=== PATIENT | female | born 1960 | race Two or more races ===

== ENCOUNTER 2023-07-08 03:11 | Inpatient (IN) | payer OTHER, SELFPAY ==
[2023-07-07 22:25] VITALS: BMI 23.1
[2023-07-07 22:31] VITALS: BP 124/80
[2023-07-07] MEDS: ZOFRAN 4 MG IV (23:16)
[2023-07-07 23:18] VITALS: BP 127/90
[2023-07-07 23:23] LABS: % Basophils 0.3 % (0-2); % Eosinophils 0.2 % (0-6); % Immature Granulocytes 0.3 % (0-0.5); % Monocytes 3.5 % (1.7-9.3); % Neutrophils 82.7 % (42.2-75.2); Absolute Lymphocytes 1.4 10^3/uL (1.2-3.4); Absolute Monocytes 0.4 10^3/uL (0.1-0.6); Absolute Neutrophils 8.7 10^3/uL (1.4-6.5); Hematocrit 39.9 % (37.0-47.0); Hemoglobin 14.4 g/dL (12.0-16.0); Mean Corp Hgb Conc. 36.1 g/dL (33.0-37.0); Mean Corpuscular Hgb 32.2 pg (27.0-31.0); Mean Corpuscular Volume 89.3 fL (81.0-99.0); Mean Platelet Volume 10.5 fL (7.4-10.4); Nucleated Red Blood Cells % 0 %; Platelet Count 221 10^3/uL (130-400); Red Blood Cell Count 4.47 10^6/uL (4.20-5.40); Red Cell Dist. Width 12.3 % (11.5-14.5); White Blood Cell Count 10.6 10^3/uL (4.8-10.8)
[2023-07-07 23:47] LABS: ALT (SGPT) 60 U/L (0-35); AST (SGOT) 83 U/L (14-36); Albumin 4.5 g/dl (3.5-5.0); Alkaline Phosphatase 86 U/L (38-126); Blood Urea Nitrogen 25 mg/dl (7-17); Calcium 10.4 mg/dl (8.4-10.2); Carbon Dioxide 27 mmol/L (22-30); Chloride 104 mmol/L (98-107); Glucose 125 mg/dl (70-99); Potassium 3.8 mmol/L (3.5-5.1); Sodium 138 mmol/L (135-145); Total Bilirubin 0.4 mg/dl (0.2-1.3); Total Protein 6.8 g/dl (6.3-8.2); eGFR > 60.00
[2023-07-07 23:54] LABS: Troponin I 0.311 ng/ml
[2023-07-08] VITALS (43 sets, daily range): BP systolic 87–133; BP diastolic 61–98; BMI 22.2
[2023-07-08] MEDS: NITROSTAT (SUBLINGUAL) 0.400000000000000022 MG SL ×4 (00:03→06:25)
[2023-07-08] MEDS: LOW STRENGTH ASPIRIN 81 MG PO (00:10)
--- NOTE | 2023-07-08 00:12 | ED.GENMED ---
History of Present Illness
General
Chief Complaint: Chest Pain
Source: patient and family
Time Seen by Provider: 07/07/23 22:40
Travel History
Have you had any contact with someone who has COVID-19?: No
Do you have any symptoms of coronavirus? Fever > 100 degrees, chills, cough, shortness of breath, sore throat, loss of taste or smell, muscle aches, or headache?: No
History of Present Illness
History of Present Illness:
This is a 62-year-old female who presents with chest pain that occurred [place] It started around 7:30 PM. She states while driving home seem to be getting worse and decided come for evaluation. Patient on my
evaluation reports it feels like somebody sitting on her chest but also admits that it feels a little sharp on the left side of her chest and worse to move. The pain does radiate a little bit toward her back. No diaphoresis. No shortness of
breath. No leg swelling. No history of coronary disease.
Past History
Past History
ED Past Surgical History:
Phy Exam
Physical Exam
Physical Exam:
CONSTITUTIONAL Patient alert and oriented to person, place and time. Well-appearing. Vital signs reviewed.
HEAD atraumatic, normocephalic.
EYES eyelids normal to inspection, Pupils equally round and reactive to light, Extraocular muscles intact, Conjunctiva normal, Sclera normal.
NECK normal range of motion, Trachea midline, no jugular venous distention.
RESPIRATORY CHEST No respiratory distress noted, Chest expansion equal, Bilateral breath sounds clear.
CARDIOVASCULAR regular rate and rhythm, Heart sounds normal.
ABDOMEN abdomen nontender, Bowel sounds normal. No distention.
BACK normal inspection, no obvious deformities
UPPER EXTREMITY range of motion normal, Motor strength normal, no cyanosis, no edema.
LOWER EXTREMITY range of motion normal, Motor strength normal, no cyanosis, no edema.
NEURO Speech normal, No focal motor deficits, [place] coma scale 15, Memory normal, Cranial Nerves intact to screening exam.
SKIN skin warm, dry, and normal in color.
PSYCHIATRIC patient oriented to person place and time, Normal affect.
Scores
Heart Score for Chest Pain Patients
STEMI patient?: No
History: Highly Suspicious
ECG: Nonspecific Repolarization
Age: >45 - <65 years
Risk Factors: 1 or 2 Risk Factors
Troponin: >/= 3 x Normal Limit
Heart Score for Chest Pain Patients: 7
Heart Score Risk: 72.7 % MACE over next 6 weeks
Course
Orders/Labs/Results
Orders:
Orders
07/07/23 22:27
ECG [Electrocardiogram (*1)] Urgent
Reason for Study: Chest Pain
EKG- Treatment ONCE
07/07/23 23:04
Electrocardiogram (*1) Urgent
Reason for Study: Chest Pain
EKG- Treatment ONCE
07/07/23 23:08
Ondansetron Injectable [Zofran] 4 mg IV NOW STA
CR Chest - 2 Views Urgent
Comment:
Reason For Exam: cp
07/07/23 23:15
Complete Blood Count/With Diff Urgent
Comprehensive Metabolic Panel Urgent
Troponin I Urgent
07/07/23 23:26
Ketorolac [Toradol] 15 mg IV NOW STA
07/07/23 23:58
Nitroglycerin Sublingual [Nitrostat (Sublingual)] 0.4 mg .ROUTE .STK-MED ONE
07/08/23
EKG [Electrocardiogram (*1)] Stat
Reason for Study: Chest Pain
07/08/23 00:02
Aspirin Chewable [Low Strength Aspirin] 81 mg PO NOW STA
Nitroglycerin Sublingual [Nitrostat (Sublingual)] 0.4 mg SL [id number] PRN
07/08/23 00:06
EKG [Electrocardiogram (*1)] Stat
Reason for Study: Chest Pain
EKG- Treatment ONCE
07/08/23 00:09
Heparin 3,600 units IV NOW STA
Nursing to Place Non Medication Order As Directed
Physician Order: PTT 6 hours after initial start of Heparin infusion
Above order entered?: Yes
07/08/23 00:14
PTT Urgent
Comment: Obtain baseline before beginning heparin infusion if not already collected
07/08/23 00:15
Heparin 50501 Units/250 ml 25,000 units in 250 ml IV PER PROTOCOL
Weight to be used for heparin protocol in kilograms (kg):: 59.2
Protocol:: Cardiac Tx/Acute Coronary
PTT Goal Range to be used:: PTT 73 to 111 seconds
Order type:: Initial
INITIAL Infusion Dose (UNITS/KG/hr) & then follow protocol:: 12 units/kg/hr
Infusion Dose in UNITS/hr & then follow protocol (UNITS/hr):: 700
INFUSION RATE in mL/hr & then follow protocol (mL/hr):: 7
PTT less than or equal to 64 seconds:: Increase rate by 200 units/hr (+ 2 mL/hr)
PTT 64.1 to 72.9 seconds:: Increase rate by 100 units/hr (+ 1 mL/hr)
PTT 73 to 111 seconds:: Target Range. No change in rate.
PTT 111.1 to 130.9 seconds:: Decrease rate by 100 units/hr (- 1 mL/hr)
PTT 131 to 199.9 seconds:: HOLD for 1 hr. Then decrease rate by 200 units/hr (- 2 mL/hr)
PTT greater than or equal to 200 seconds:: HOLD for 2 hrs & Notify Provider. Then decrease by 200 units/hr (-
2 mL/hr)
Lab follow-up:: Each change, PTT q6h until 2 consecutive are therapeutic. Then PTT
daily.
07/08/23 00:26
Electrocardiogram (*1) Urgent
Reason for Study: Chest Pain
EKG- Treatment ONCE
EKG- Treatment ONCE
07/08/23 00:28
Nitroglycerin 100 mg/250 ml [Nitroglycerin Premix] 100 mg in 250 ml .ROUTE .STK-MED
Nitroglycerin 100 mg/250 ml [Nitroglycerin Premix] 100 mg in 250 ml IV NOW
Initial dose in mcg/min, then titrate:: 5
Titrate to keep:: SBP < 160 mmHg
Titrate by mcg/min:: 5 mcg/min, may increase by 10 mcg/min if dose > 20 mcg/min
Frequency of titrations (minutes):: every 3-5 minutes
Maximum dose in mcg/min:: 200
Begin to taper infusion when:: Remained at goal for 2hrs
Taper by mcg/min:: 5 mcg/min
Frequency of taper (minutes) if patient maintains goal:: 30
Taper to off?: Yes
If infusion off & no longer maintaining goal:: Contact Provider
07/08/23 00:58
Troponin I Urgent
07/08/23 01:00
Flush (0.9% Sodium Chloride) [Flush (Nss)] See Dose Instructions IV PER PROTOCOL
07/08/23 01:28
Ticagrelor [Brilinta] 180 mg .ROUTE .STK-MED ONE
07/08/23 01:31
Ticagrelor [Brilinta] 180 mg PO ONCE ONE
07/08/23 01:47
Fentanyl Citrate/Pf [Sublimaze] 100 mcg .ROUTE .STK-MED ONE
Heparin 10,000 units .ROUTE .STK-MED ONE
Heparin 1000 Units/500 ml [Heparin] 1,000 units in 500 ml .ROUTE .STK-MED
Heparin Sodium,Porcine/Ns/Pf [Heparin 2000 Units/1000 ml] 2,000 unit in 1,000 ml .ROUTE .STK-MED
Lidocaine HCl/Pf [Xylocaine-Mpf 1% Vial] 50 mg .ROUTE .STK-MED ONE
Midazolam HCl [Versed] 2 mg .ROUTE .STK-MED ONE
Nitroglycerin [Tridil] 1,500 mcg .ROUTE .STK-MED ONE
Verapamil Injectable [Isoptin/Verapamil Injection] 5 mg .ROUTE .STK-MED ONE
Abnormal Lab Results
07/07/23 07/08/23
23:15 00:58
MCH 32.2 H pg
(27.0-31.0)
MPV 10.5 H fL
(7.4-10.4)
Absolute Neuts (auto) 8.7 H 10^3/uL
(1.4-6.5)
Neutrophils % 82.7 H %
(42.2-75.2)
Lymphocytes % 13.0 L %
(20.5-51.1)
BUN 25 H mg/dl
(7-17)
Glucose 125 H mg/dl
(70-99)
Calcium 10.4 H mg/dl
(8.4-10.2)
AST 83 H U/L
(14-36)
ALT 60 H U/L
(0-35)
Troponin I 0.311 H* ng/ml 0.740 H* D ng/ml
07/07/23 23:15
07/07/23 23:15
Vital Signs
Initial and Last Documented VS:
Initial Vital Signs
Temp Pulse Resp BP Pulse Ox
97.8 F 78 20 124/80 100
07/07/23 22:31 07/07/23 22:31 07/07/23 22:31 07/07/23 22:31 07/07/23 22:31
Last Documented Vital Signs
Temp Pulse Resp BP Pulse Ox
97.8 F 98 33 117/75 97
07/07/23 22:31 07/08/23 01:50 07/08/23 01:25 07/08/23 01:50 07/08/23 01:50
MDM/Problems Addressed
MDM/Problems Addressed:
NSTEMI, unstable angina
*Radiology
Radiology exam reviewed: all reviewed NAD by ED Provider
*Pulse Oximetry
Patient hypoxic: no
*EKG
Interpreted by ED Provider?: Yes
Interpretation: abnormal
Rate: normal
Rhythm: sinus
[place]: normal axis
Interval: normal interval
Ischemia: other (Question subtle ST elevation in 1 and aVL but no reciprocal changes. Continue to repeat and monitor)
*Lawn Mower Mechanic Interpretation
Rate: normal
Interpretation: normal
Rhythm: sinus
*Critical Care Note
Total Time (30-74mins, 75-104mins- exclusive of procedures): 65 minutes
Data Reviewed
Source: patient and significant other
Prescriptions/Medications Considered But Not Given:
Consider Toradol suspect ACS as etiology
Patient Management
Discussion with other providers: Deputy Bailiff (Case discussed with Dr. Green)
Escalation/DeEscalation of care consider admission/obs:
62-year-old female who presents with chest pain that started around 730 while rowing. EKG repeated shortly after arrival and remained unchanged. Symptoms did improve after nitroglycerin. Case discussed with Dr. Green. Troponin noted. Heparin
ordered. Patient did take 3 baby aspirin's at home prior to arrival. Dr. Alva also to discuss with interventional cardiology.
Update Note
Update Note:
Despite IV nitroglycerin and the third sublingual, pain does persist around 1. She states she is much improved but does persist to a mild degree. Case again discussed with cardiology and will go for cardiac catheterization. Another repeat EKG
appears unchanged from the previous several.
ED Attending Note
-
Portions of this chart may have been created with voice recognition software.� Occasional wrong word or��sound alike� substitutions may have occurred due to the inherent limitations of voice recognition software.
Discharge Plan
Departure
Patient Disposition: Admit
Date of Disposition: 07/08/23
Time of Disposition: 00:13
Admit to: IVU
Presentation/result/management discussed w/ accepting MD/DO: cardiology
Discharge Problem:
Acute non-ST elevation myocardial infarction (NSTEMI)
Prescriptions:
No Action
No Current Medications
0
Referrals:
Marguerite Multani PA-C [Family Provider] -
Interventions
Interventions:
*Risk Screen - Suicide Last Done: 07/07/23 22:31
*General Assessment Last Done: 07/07/23 22:31
*Neglect/Abuse Screening Last Done: 07/07/23 22:31
ED- Fall Risk Assessment Last Done: 07/08/23 02:02
*ED COVID-19 Vaccine History Last Done: 07/08/23 02:02
*Nursing Disposition Last Done: 07/08/23 02:02
ED- Cardiac Assessment Last Done: 07/08/23 00:47
Discharge Date and Time
Discharge Date/Time: 07/08/23 02:03
Print Language: PALESTINIAN
[2023-07-08] MEDS: HEPARIN 3600 UNITS IV (00:34)
[2023-07-08] MEDS: NITROGLYCERIN PREMIX 250 IV (00:34)
[2023-07-08] MEDS: HEPARIN 25000 UNITS/250 ML IV (00:36)
[2023-07-08 00:40] LABS: APTT 27.7 Sec (23.4-35.0)
[2023-07-08] MEDS: BRILINTA 180 MG PO (01:31)
--- NOTE | 2023-07-08 01:55 | ITS.CL.CATH ---
Broadcast Director Operations - Catheterization
Cardiac Catheterization
Procedure Report:
LEFT HEART CATHETERIZATION
Date of Procedure: July 08, 2023
Referring: [facility]
PROCEDURES:
1. Left heart catheterization, coronary angiogram.
2. Ultrasound-guided access
INDICATION: Nora is a 62-year-old female with past medical history of tobacco abuse, quit 40 years ago with no other known past medical history who presents with substernal chest discomfort that started soon [place] starting around 7:30PM with ECG showing submillimeter ST elevations in lateral leads with Q waves present no other reciprocal changes. Troponin I on presentation was 0.3. Her chest pain improved significantly post sublingual nitro however
despite 3 doses she could not become chest pain-free now complaining of 1 out of 10 chest pain for which the heart catheterization team was activated. After informed consent she was brought up to the heart catheterization lab urgently for a left
heart catheterization to rule out obstructive CAD. She received 325 mg of aspirin, 180 mg of ticagrelor, 5000 units of unfractionated IV heparin, 3 sublingual nitroglycerin in the emergency department. She tells me that she had similar chest
discomfort about a year ago however it was not as severe and did not persist and therefore she did not seek any medical attention. She has not seen a physician in little over 3 years. Prior to that she did have a regular health checkup which was
unremarkable per the patient.
ACCESS: Right radial artery, 6 Maltese sheath, under ultrasound guidance
HEMODYNAMICS : (mmHg)
AO (s/d) 133/92
LV (s/d) : 130/21
LVEDP : 30
CORONARY FINDINGS
DOMINANCE: Right
LEFT MAIN: The left main artery is a large-caliber vessel which gives rise to the left into descending artery and a very small diminutive left circumflex system. Angiographically normal vessel.
LEFT ANTERIOR DESCENDING: The left anterior descending artery is a medium to large caliber vessel which gives rise to multiple small diagonal branches as it courses through the anterior interventricular groove towards the apex. There is minimal
luminal irregularities. Coronary slow flow was noted on initial shots which improved after intracoronary nitroglycerin.
CIRCUMFLEX: The left circumflex artery is a very small diminutive system without significant disease.
RIGHT CORONARY ARTERY: The right coronary artery is a large-caliber, dominant vessel which gives rise to right posterior descending artery and a large right posterolateral system. Angiographically normal vessels.
AORTOGRAM AND VENTRICULOGRAM: An aortogram was performed to definitively rule out an anomalous left circumflex artery. Aortogram did not suggest any evidence of this and therefore we concluded presence of a likely small diminutive left circumflex
system in the setting of a large right posterolateral system. In a single plane JUÁREZ view ventriculography was performed which showed hyperdynamic function of the basal anterior and posterolateral beltran with significant mid to apical hypokinesis,
most consistent with Takotsubo or stress-induced cardiomyopathy. Estimated left ventricular ejection fraction is about 35 to 40%.
SEDATION: 60 minutes of procedural sedation was utilized. An independent medical office receptionist assistant was present to assist with and help manage the patient's level of consciousness and physiologic status.
RADIATION SUMMARY: Fluoro Time (min): 6.0, Dose (mGy): 199.8, DAP (Gy.cm2) : 17.5
Closure Device: Vascular band over right radial artery, 9 cc of air.
CONCLUSIONS
1. No obstructive coronary artery disease.
2. In a single plane JUÁREZ view ventriculography was performed which showed hyperdynamic function of the basal anterior and posterolateral beltran with significant mid to apical hypokinesis, most consistent with Takotsubo or stress-induced
cardiomyopathy. Estimated left ventricular ejection fraction is about 35 to 40%.
3. Significantly elevated LVEDP.
RECOMMENDATIONS
1. Goal-directed medical therapy for Takotsubo stress-induced cardiomyopathy.
2. Wean radial band per protocol.
3. Full echocardiogram to assess biventricular function and rule out any significant valvular abnormalities.
4. Trend troponins and EKGs overnight with close monitoring on telemetry.
5. Modification of cardiovascular risk factors.
6. Outpatient referral for cardiac rehab.
Copy to: Oscar Green
Lesley Mckinley MD, FACC, [facility]
[2023-07-08 02:13] LABS: ACT-LR - POC 182 Seconds (116-155)
[2023-07-08 02:30] LABS: ACT-LR - POC 221 Seconds (116-155)
--- NOTE | 2023-07-08 03:11 | HPS.HSE ---
Family Physician
-
Family Physician: Marguerite Multani PA-C
Chief Complaint
-
Chest Pain
History of Present Illness
Nora is a 62-year-old female with past medical history of tobacco abuse, quit 40 years ago with no other known past medical history who presents with substernal chest discomfort that started soon [place] starting
around 7:30PM with ECG showing submillimeter ST elevations in lateral leads with Q waves present no other reciprocal changes. Troponin I on presentation was 0.3. Her chest pain improved significantly post sublingual nitro however despite 3 doses
she could not become chest pain-free now complaining of 1 out of 10 chest pain for which the heart catheterization team was activated. After informed consent she was brought up to the heart catheterization lab urgently for a left heart
catheterization to rule out obstructive CAD. She received 325 mg of aspirin, 180 mg of ticagrelor, 5000 units of unfractionated IV heparin, 3 sublingual nitroglycerin in the emergency department. She tells me that she had similar chest discomfort
about a year ago however it was not as severe and did not persist and therefore she did not seek any medical attention. She has not seen a physician in little over 3 years. Prior to that she did have a regular health checkup which was unremarkable
per the patient.
Medical History
Past Medical History
Past Medical History: Reports None
Past Surgical History: Reports Other
Additional Past Surgical History:
Social History
Tobacco: Former Smoker (quit 40 yrs ago)
Alcohol: Occasional
Drug: None
Personal:
Living: With Family
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
Family History
Family History: Not pertinent
Allergies / Home Medications
Allergies reflects when Allergies were last updated in [facility].
Home Medications with original date entered in [facility]
Allergy/Medication List:
NKDA
No chronic medications
Review of Systems
-
A 12 point ROS was completed and negative except as noted: Yes
Physical Exam
Vital Signs
Vital Signs
Temp Pulse Resp BP Pulse Ox
97.8 F 98 33 117/75 97
07/07/23 22:31 07/08/23 01:50 07/08/23 01:25 07/08/23 01:50 07/08/23 01:50
Physical Exam
General: Well Developed, Well Nourished and Appears in Distress (mild CP)
HEENT: Moist mucous membranes and Atraumatic
Respiratory: Clear and Non Labored Respirations
Cardiac: S1/S2, Regular Rhythm and JVD; No Murmur, Rub, Gallop or Peripheral Edema
Breast: Deferred by me
GI: Soft, Non Tender, Non Distended and Normal Bowel Sounds
Musculoskeletal: No Clubbing, No Cyanosis and No Edema
Skin: Warm and Dry
Neuro: Awake, Alert, Oriented and AO x 3
Psych: Anxious
Laboratory Results
-
Laboratory Results
APTT 27.7 Sec (23.4-35.0) 07/08/23 00:14
Total Bilirubin 0.4 mg/dl (0.2-1.3) 07/07/23 23:15
AST 83 U/L (14-36) H 07/07/23 23:15
ALT 60 U/L (0-35) H 07/07/23 23:15
Alkaline Phosphatase 86 U/L (38-126) 07/07/23 23:15
Troponin I 0.740 ng/ml H* D 07/08/23 00:58
Data Reviewed
-
Critical Care Time (in minutes): 61
Diagnostic Radiology: Report Reviewed by me
Medical Tests (Nuc Med, Echo, EKG etc): Image Personally Visualized and interpreted
Lab Data: Labs Reviewed by me
Old Records: Reviewed
Impression/Plan
-
IMPRESSION: 62-year-old female with no significant past medical history other than being a former smoker, quit 40 years ago who presents with substernal chest discomfort found to have an NSTEMI with heart catheterization showing no obstructive CAD,
most consistent with Takotsubo or stress-induced cardiomyopathy.
PLAN: RECOMMENDATIONS
1. Goal-directed medical therapy for Takotsubo stress-induced cardiomyopathy. Started on Toprol-XL 25 mg daily. IV diuresis as needed in setting of significantly elevated LVEDP at 30 mmHg.
2. Wean radial band per protocol.
3. Full echocardiogram to assess biventricular function and rule out any significant valvular abnormalities.
4. Trend troponins and EKGs overnight with close monitoring on telemetry.
5. Modification of cardiovascular risk factors.
6. Outpatient referral for cardiac rehab.
Lesley Mckinley MD, FACC, [facility]
[2023-07-08] MEDS: TOPROL XL 25 MG PO ×3 (03:46→21:01)
--- NOTE | 2023-07-08 04:00 | PTCARENOTE ---
Received pt from label drier. AOx3 and pleasant. R radial band on. Aware of activity restrictions. POX 96% RA. VSS. Pt able to approp answer all admission questions. Oriented to room. Labs drawn. Offers no c/o at this time. Currently in bed; call hightower
w/in reach.
[2023-07-08 04:17] LABS: % Basophils 0.2 % (0-2); % Eosinophils 0.1 % (0-6); % Immature Granulocytes 0.2 % (0-0.5); % Monocytes 5.4 % (1.7-9.3); % Neutrophils 72.1 % (42.2-75.2); Absolute Lymphocytes 1.8 10^3/uL (1.2-3.4); Absolute Monocytes 0.5 10^3/uL (0.1-0.6); Hematocrit 37.7 % (37.0-47.0); Hemoglobin 13.4 g/dL (12.0-16.0); Mean Corp Hgb Conc. 35.5 g/dL (33.0-37.0); Mean Corpuscular Hgb 32.1 pg (27.0-31.0); Mean Corpuscular Volume 90.2 fL (81.0-99.0); Mean Platelet Volume 10.5 fL (7.4-10.4); Nucleated Red Blood Cells % 0 %; Platelet Count 219 10^3/uL (130-400); Red Blood Cell Count 4.18 10^6/uL (4.20-5.40); Red Cell Dist. Width 12.4 % (11.5-14.5); White Blood Cell Count 8.3 10^3/uL (4.8-10.8)
[2023-07-08 05:03] LABS: Blood Urea Nitrogen 17 mg/dl (7-17); Carbon Dioxide 22 mmol/L (22-30); Chloride 107 mmol/L (98-107); Estimated Creatinine Clearance 82 ml/min; Glucose 104 mg/dl (70-99); HDL Cholesterol 56 mg/dl; LDL Cholesterol, Calculated 108 mg/dl; Potassium 3.6 mmol/L (3.5-5.1); Sodium 138 mmol/L (135-145); Total Cholesterol 172 mg/dl (50-199); Triglyceride 40 mg/dl (10-149); Very Low Density Lipoprotein 8 mg/dl (0-30); eGFR > 60.00
--- NOTE | 2023-07-08 07:00 | PTCARENOTE ---
R radial band off. 4x4 gauze and Tegaderm applied. C/d/i. C/o chest pressure 2/10. SL nitro given per order. Pt states relief but appears anxious. Will pass along to dayshift RN.
--- NOTE | 2023-07-08 08:05 | CARDSERVLU ---
Echocardiogram with Lumason completed after protocol screening completed. Allergies verified.
Patent IV site: __R AC___
IV site flushed with 0.9% NaCl pre and post administration.
Diluted bolus method utilized to enhance visualization of ventricular beltran.
Total volume given: __2.5__ mL
Patient tolerated all procedures well without complications.
--- NOTE | 2023-07-08 09:28 | PTCARENOTE ---
Assumed care of pt from night RN. Pt received awake and alert, Ox3. VSS, CM shows NSR70's, POX 95% on RA. Right radial site CDI, with good CMS throughout limb. She c/o chest pressure 1-2. Echo done this am. Trops due at 1100. For Lasix tis am.
[2023-07-08] MEDS: LASIX 20 MG IV (09:42)
--- NOTE | 2023-07-08 09:47 | PTCARENOTE ---
Lasix 20 mg given IV as ordered per MAY.
--- NOTE | 2023-07-08 09:55 | W.PN.CARDCBS ---
Today's Communication / Plan
-
serial troponin to peak
Echo today
initiate GDMT as bp allows for Takotsubo CM
Impression / Plan
-
PCP: Marguerite Multani PA-C
62-year-old female with no significant past medical history other than being a former smoker, quit 40 years ago who presents with substernal chest discomfort found to have an NSTEMI with heart catheterization showing no obstructive CAD, most
consistent with Takotsubo or stress-induced cardiomyopathy.
Impression/Plan:
Non ischemic myocardial injury/Takotsubo CM - cath with normal coronaries, EF 35-40% by Vgram, still having 2-3/10 chest heaviness
LVEDP 30, will treat with Lasix 20iv now, replete K, tele no events o/n
serial troponin to peak, Echo results pending
new start to metoprolol xl 25mg this am, will monitor bp and will try to attempt entresto
Activity restrictions reviewed
will ff/u CBC at d/c
continue to monitor on tele another 24 hours
Former smoker - remote, cessation reinforced
Progress Note - Marketing Services Manager
Subjective
Date of Service: July 08, 2023
2-3/10 chest heaviness, no sob
Objective
Labs:
07/08/23 03:37
07/08/23 03:37
Labs
Hgb 13.4 g/dL (12.0-16.0) 07/08/23 03:37
Hct 37.7 % (37.0-47.0) 07/08/23 03:37
Plt Count 219 10^3/uL (130-400) 07/08/23 03:37
APTT 27.7 Sec (23.4-35.0) 07/08/23 00:14
Sodium 138 mmol/L (135-145) 07/08/23 03:37
Potassium 3.6 mmol/L (3.5-5.1) 07/08/23 03:37
BUN 17 mg/dl (7-17) 07/08/23 03:37
Creatinine 0.5 mg/dL (0.6-1.0) L 07/08/23 03:37
Glucose 104 mg/dl (70-99) H 07/08/23 03:37
Troponins
07/07/23 07/08/23 07/08/23
23:15 00:58 03:37
Troponin I 0.311 H* 0.740 H* D 1.570 H* D
Vital Signs and I&O:
Vital Signs
Temp Pulse Resp BP Pulse Ox
98.1 F 78 20 112/76 95
07/08/23 08:31 07/08/23 03:46 07/08/23 08:31 07/08/23 03:46 07/08/23 09:23
Vital Signs
Temp Pulse Resp BP Pulse Ox
98.1 F 78 20 112/76 95
07/08/23 08:31 07/08/23 03:46 07/08/23 08:31 07/08/23 03:46 07/08/23 09:23
Physical Exam
Physical Exam
NAD< AOx3, tearful
S1, S2, RRR
CTAB, non labored, no wheeze
SNTND Bsx4
R rad site c/d/i no HT, good pulse
--- NOTE | 2023-07-08 09:56 | W.PN.CD ---
Today's Communication / Plan
-
echo
IV lasix
trend tele
Impression / Plan
-
62 yo female presented to ED last night with chest pain after Dragon boat rowing. She reports it was very intense activity. Chest pain persisted with elevated troponin, and borderline lateral ST elevation, so emergent cath was performed.
CATH CONCLUSIONS: 07/08/23
1. No obstructive coronary artery disease.
2. In a single plane JUÁREZ view ventriculography was performed which showed hyperdynamic function of the basal anterior and posterolateral beltran with significant mid to apical hypokinesis, most consistent with Takotsubo or stress-induced
cardiomyopathy. Estimated left ventricular ejection fraction is about 35 to 40%.
3. Significantly elevated LVEDP.
# Takutsubo cardiomyopathy
-EF 35-40% on cath
-echo today
-Toprol XL 25mg bid started today
-based on echo results, may add entresto
# Acute HFrEF
-LVEDP 30 on cath
-lasix 20mg IV x1, and re-assess
# Elevated troponin
-appears to be acute non-ischemic myocardial injury in setting of Takutsubo
Physical Exam
Vital Signs/Labs
Vital Signs
Temp Pulse Resp BP Pulse Ox
98.1 F 78 20 112/76 95
07/08/23 08:31 07/08/23 03:46 07/08/23 08:31 07/08/23 03:46 07/08/23 09:23
07/07/23 07/08/23 07/09/23
06:59 06:59 06:59
Actual Weight 56.9 kg
07/08/23 03:37
07/08/23 03:37
APTT 27.7 Sec (23.4-35.0) 07/08/23 00:14
Triglycerides 40 mg/dl (10-149) 07/08/23 03:37
LDL Cholesterol, Calc 108 mg/dl 07/08/23 03:37
VLDL Cholesterol, Calc 8 mg/dl (0-30) 07/08/23 03:37
HDL Cholesterol 56 mg/dl 07/08/23 03:37
LAB Results
07/07/23 07/08/23 07/08/23
23:15 00:58 03:37
Troponin I 0.311 H* 0.740 H* D 1.570 H* D
Physical Exam
Constitutional: No acute distress and Comfortable
EENT: Moist mucous membranes
Cardiovascular: Rhythm & rate is regular, Pedal edema is absent, Systolic murmur absent and JVD present
Respiratory: Respiratory effort normal, Lungs clear to auscul. and Wheeze Absent
GI: Soft, Distention absent and Flat
Neuro/Psych: AO x 3
Data Reviewed
-
Date of Service: July 08, 2023
EKG: Other (Tele: NSR, brief SVT)
Medical Tests (PFT, Pathology etc): Report Reviewed by me (cath per note)
Labs: Labs Reviewed by me
--- NOTE | 2023-07-08 10:08 | CM ---
Reviewed chart. Met with and Mrs. Soni to review discharge plans. She states prior to admission she resides with her spouse in a two story home with five steps to enter. She states she has a full flight of steps to get to bedroom/full
bathroom. She states she has a powder room on the first floor. She states prior to admission she was independent with ambulation and adls. She states she does not have a prescription plan. She states she is changing to [employer] on July
. She thinks she has a $7000.00 deductible that has to be met. She will have a prescription plan on the [employer] Coverage. She has the one month free Entresto Coupon and the $10.00 co-pay Entresto Coupon to use after her insurance changes.
Medical work-up in progress. The discharge plan is to return home with her spouse when medically stable.
[2023-07-08] MEDS: KCL 40 MEQ PO (10:17)
--- NOTE | 2023-07-08 10:40 | PTCARENOTE ---
KCl 40 meq's given po as per MAR.
[2023-07-08] MEDS: LOVENOX 40 MG SC (17:41)
--- NOTE | 2023-07-08 21:00 | PTCARENOTE ---
Kylah camacho. BP 89/67. Not w/in admin. parameters.
[2023-07-09 03:41] VITALS: BP 85/55
[2023-07-09 03:43] VITALS: BP 86/64
[2023-07-09 03:54] VITALS: BMI 21.8
[2023-07-09 03:58] LABS: Hematocrit 41.1 % (37.0-47.0); Hemoglobin 14.7 g/dL (12.0-16.0); Mean Corp Hgb Conc. 35.8 g/dL (33.0-37.0); Mean Corpuscular Hgb 32.5 pg (27.0-31.0); Mean Corpuscular Volume 90.7 fL (81.0-99.0); Mean Platelet Volume 10.6 fL (7.4-10.4); Platelet Count 212 10^3/uL (130-400); Red Blood Cell Count 4.53 10^6/uL (4.20-5.40); Red Cell Dist. Width 12.6 % (11.5-14.5); White Blood Cell Count 5.9 10^3/uL (4.8-10.8)
[2023-07-09 04:31] LABS: ALT (SGPT) 48 U/L (0-35); AST (SGOT) 48 U/L (14-36); Albumin 3.9 g/dl (3.5-5.0); Alkaline Phosphatase 63 U/L (38-126); Blood Urea Nitrogen 18 mg/dl (7-17); Calcium 9.5 mg/dl (8.4-10.2); Carbon Dioxide 27 mmol/L (22-30); Chloride 106 mmol/L (98-107); Estimated Creatinine Clearance 71 ml/min; Glucose 92 mg/dl (70-99); Potassium 4.1 mmol/L (3.5-5.1); Sodium 135 mmol/L (135-145); Total Bilirubin 0.6 mg/dl (0.2-1.3); Total Protein 6.3 g/dl (6.3-8.2); eGFR > 60.00
[2023-07-09 07:06] VITALS: BP 86/69
[2023-07-09 07:08] VITALS: BP 87/67
[2023-07-09 08:43] VITALS: BP 99/67
[2023-07-09] MEDS: FARXIGA 10 MG PO (08:49)
--- NOTE | 2023-07-09 08:52 | W.PN.CARDCBS ---
Addendum entered and electronically signed by Naresh Chowdary MD 07/09/23 09:56:
I saw and examined the patient.
The HOSPITALIST NOCTURNIST PHYSICIAN's note was reviewed and I agree with the note.
Comment: Anticipate home today and outpt followup arranged. Anticipate that an increase of meds towards goal/max tolerated despite low BP if EF stays abnormal.
Original Note:
Today's Communication / Plan
-
Medication adjustment for low bp/hr
CM consult for farxiga pricing
home today
Impression / Plan
-
PCP: Marguerite Multani PA-C
CDY: New to [facility]
62 yo female presented to ED last night with chest pain after Dragon boat rowing. She reports it was very intense activity. 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
LHC 07/06- no obstructive CAD, LV Gram with EF 35-40%, mid-apical HK, c/w Takotsubo cardiomyopathy.
Echo 07/07- severely reduced LVSF, EF 20-25%, all segments AK except basal, c/w Takotsubo, no LV thrombus, mot TR, small pericardial effusion.
IMPRESSION/PLAN:
Takutsubo cardiomyopathy
echo results noted, EF 20-25%
SBP 80-100s and HR 50-60s on toprol, entresto.
Will try toprol xl 25mg HS, lisinopril 2.5mg daily, and farxiga 10mg daily
CM to check cost of farxiga
repeat outpt echo in 2-3 months
followup at [facility] arranged.
New onset Acute HFrEF
LVEDP 30- good diuresis from Lasix 20mg IV x1
lytes stable today
starting GDMT as noted- will monitor to see how she tolerates
Elevated troponin
peak 2.04
this is acute non-ischemic myocardial injury in the setting of Takotsubo
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
Subjective
Date of Service: July 09, 2023
Denies cp/palps/dyspnea
oob ambulating
no dizziness/LH
cath site without pain
Objective
Labs:
07/09/23 03:50
07/09/23 03:50
Labs
Hgb 14.7 g/dL (12.0-16.0) 07/09/23 03:50
Hct 41.1 % (37.0-47.0) 07/09/23 03:50
Plt Count 212 10^3/uL (130-400) 07/09/23 03:50
APTT 27.7 Sec (23.4-35.0) 07/08/23 00:14
Sodium 135 mmol/L (135-145) 07/09/23 03:50
Potassium 4.1 mmol/L (3.5-5.1) 07/09/23 03:50
BUN 18 mg/dl (7-17) H 07/09/23 03:50
Creatinine 0.7 mg/dL (0.6-1.0) 07/09/23 03:50
Glucose 92 mg/dl (70-99) 07/09/23 03:50
Troponins
07/07/23 07/08/23 07/08/23
23:15 00:58 03:37
Troponin I 0.311 H* 0.740 H* D 1.570 H* D
07/08/23 07/08/23
11:40 21:00
Troponin I 2.040 H* 1.390 H*
Vital Signs and I&O:
Vital Signs
Temp Pulse Resp BP Pulse Ox
97.7 F 55 20 86/64 96
07/09/23 07:04 07/09/23 04:45 07/09/23 07:04 07/09/23 03:43 07/09/23 07:04
Vital Signs
Temp Pulse Resp BP Pulse Ox
97.7 F 55 20 86/64 96
07/09/23 07:04 07/09/23 04:45 07/09/23 07:04 07/09/23 03:43 07/09/23 07:04
Intake & Output
07/07/23 07/08/23 07/09/23 07/10/23
06:59 06:59 06:59 06:59
Intake Total 240 / 240
Balance 240 / 240
Physical Exam
Physical Exam
AAOx3, MAEE 5/5
RRR S1 S2 no murmurs
CTA bilat, non labored
soft abd, + bs
right radial cath site without ht/bleeding, non tender
bilat extremities w/palpable distal pulses, no edema
--- NOTE | 2023-07-09 10:50 | W.DS.TRANS ---
DC Summary - Rn Acute
-
Discharge Instructions:
Discharge Diagnosis/Procedures Takotsubo Cardiomyopathy, cardiac cath
Diet Low Sodium
Activity No strenuous activity
Additional Activity For 1 week
Driving Restrictions No driving for 24 hours
Specialty Instructions Weigh Daily
Instructions:
Stand-Alone Forms: DC Instructions- Cath/EP Lab
Changes to Home Medications: Yes
Discharge Medications:
DC Medications w/original date entered in [facility]
dapagliflozin propanediol 10 mg tablet 10 mg PO DAILY #90 tabs 07/09/23
lisinopril 2.5 mg tablet 2.5 mg PO DAILY #90 tabs 07/09/23
metoprolol succinate 25 mg tablet,extended release 24 hr 25 mg PO HS #90 tabs 07/09/23
Home Medication Changes
ALL MEDS ARE NEW
Pending Results: No
== END 2023-07-09 14:03 | disposition home or self-care (01) | DRG 280 ==
LOC: IVU 03:11
PROVIDERS: Nurse Practitioner Adult Health; ADMITTING PHYSICIAN Internal Medicine Interventional Cardiology; ATTENDING PHYSICIAN Internal Medicine; EMERGENCY PHYSICIAN Emergency Medicine; FAMILY PHYSICIAN Physician Assistant Medical
PROC: 4A023N7 Measurement of Cardiac Sampling and Pressure, Left Heart, Percutaneous Approach (ICD-10-PCS; 2023-07-08)
PROC: B2111ZZ Fluoroscopy of Multiple Coronary Arteries using Low Osmolar Contrast (ICD-10-PCS; 2023-07-08)
PROC: B2151ZZ Fluoroscopy of Left Heart using Low Osmolar Contrast (ICD-10-PCS; 2023-07-08)
DX: I51.81 Takotsubo syndrome (principal); I50.21 Acute systolic (congestive) heart failure; I21.4 Non-ST elevation (NSTEMI) myocardial infarction; Z87.891 Personal history of nicotine dependence
CPT/HCPCS: 93308; 71046; 76937; 80048; 80053; 80061; 84484; 85025; 85027; 85347; 85730; 93005; 93306; 93458; 96365; 96367; 96375; 99152; 99153; 99291; C1894; Q9950; Q9967

== ENCOUNTER 2023-08-16 18:48 | Emergency (ER) | payer OTHER, SELFPAY ==
[2023-08-16 18:51] VITALS: BP 143/88
--- NOTE | 2023-08-16 20:04 | ED.GENMED ---
History of Present Illness
General
Chief Complaint: Skin Problem
Source: patient
Time Seen by Provider: 08/16/23 19:34
Travel History
Have you had any contact with someone who has COVID-19?: No
Do you have any symptoms of coronavirus? Fever > 100 degrees, chills, cough, shortness of breath, sore throat, loss of taste or smell, muscle aches, or headache?: No
History of Present Illness
History of Present Illness:
62-year-old female with history of cardiomyopathy presenting to the emergency department for dog bite. Patient reports her son's dog bit her prior to arrival in the right hand. Since dog is fully vaccinated. Denies any provoking behavior.
Reports puncture wound to the right hand, did irrigate at home. Denies numbness or tingling. Bleeding has been controlled, is on a blood thinner for her cardiomyopathy. Otherwise denies additional acute injuries or medical complaints such as
chest pain, difficulty breathing, fever, abdominal pain or GI symptoms.
Past History
Past History
ED Past Surgical History:
Phy Exam
Physical Exam
Physical Exam:
GENERAL: Alert , in no apparent distress
EYE: pupils equal and reactive
NECK: Supple, no significant adenopathy.
ENT: o/p clr, mmm.
CARDIAC: Regular rate
LUNGS: no acute respiratory distress
ABDOMEN: No distention
NEUROLOGICAL: Alert and oriented, no focal neuro deficits
SKIN: Warm and dry, skin intact.
MUSCULOSKELETAL: No significant swelling or deformity to the right hand. 2 puncture wounds to the thenar eminence at the palm. Bleeding controlled. No deep space wounds. Range of motion grossly intact. Sensation intact
PSYCH: Normal and appropriate interaction.
Course
Orders/Labs/Results
Orders:
Orders
08/16/23 19:50
Amoxicillin 875 mg/Clav 125 mg [Augmentin 875 mg/125 mg] 1 tablet PO NOW STA
Tetanus/Diphth/Acelpertussis [Adacel] 0.5 ml IM .ONCE ONE
Vital Signs
Initial and Last Documented VS:
Initial Vital Signs
Temp Pulse Resp BP Pulse Ox
98.3 F 64 20 143/88 99
08/16/23 18:51 08/16/23 18:51 08/16/23 18:51 08/16/23 18:51 08/16/23 18:51
Last Documented Vital Signs
Temp Pulse Resp BP Pulse Ox
98.3 F 64 20 143/88 99
08/16/23 18:51 08/16/23 18:51 08/16/23 18:51 08/16/23 18:51 08/16/23 18:51
MDM/Problems Addressed
MDM/Problems Addressed:
62-year-old female with history of cardiomyopathy presenting for dog wound to the right hand.
On exam, patient well-appearing, no acute distress or discomfort. Overall benign examination of the right hand. No significant swelling or deformity. Small puncture wounds, no deep space lacerations. Range of motion intact without suspicion for
tendinous injury. No sign of foreign body. No neurovascular compromise. Will update tetanus. Notes that dogs vaccines are up-to-date without indication for rabies vaccination. Will start on Augmentin. Will also irrigate. Will appropriately
dressed hand. Otherwise feel stable for discharge with close interval follow-up PCP for wound reassessment. Return precautions discussed and patient verbalized understanding
*Critical Care Note
Total Time (30-74mins, 75-104mins- exclusive of procedures): Not Applicable
ED Attending Note
-
Portions of this chart may have been created with voice recognition software.� Occasional wrong word or��sound alike� substitutions may have occurred due to the inherent limitations of voice recognition software.
Discharge Plan
Departure
Prescriptions:
No Action
dapagliflozin propanediol 10 mg Tablet
10 mg PO DAILY Qty: 90 3RF
metoprolol succinate 25 mg Tablet Extended Release 24 Hr
25 mg PO HS Qty: 90 3RF
lisinopril 2.5 mg Tablet
2.5 mg PO DAILY Qty: 90 3RF
Referrals:
Marguerite Multani PA-C [Family Provider] -
Interventions
Interventions:
*Risk Screen - Suicide Last Done: 08/16/23 18:51
*General Assessment Last Done: 08/16/23 18:51
*Neglect/Abuse Screening Last Done: 08/16/23 18:51
Discharge Date and Time
Print Language: [id number]
[2023-08-16] MEDS: ADACEL 0.5 ML IM (20:29)
[2023-08-16] MEDS: AUGMENTIN 875 MG/125 MG 1 TABLET PO (20:29)
[2023-08-16 20:43] VITALS: BP 121/79
== END 2023-08-16 20:44 | disposition home or self-care (01) ==
LOC: EMR 18:48
PROVIDERS: EMERGENCY PHYSICIAN Student in an Organized Health Care Education/Training Program; FAMILY PHYSICIAN Physician Assistant Medical
DX: S61.431A Puncture wound without foreign body of right hand, initial encounter (principal); W54.0XXA Bitten by dog, initial encounter; Z23 Encounter for immunization; I42.9 Cardiomyopathy, unspecified
CPT/HCPCS: 99283; 90471; 90715

== ENCOUNTER → 2023-10-12 11:04 | Outpatient (REF) | payer OTHER, SELFPAY | LOC: RCS 11:04 | PROVIDERS: ATTENDING PHYSICIAN Nurse Practitioner; FAMILY PHYSICIAN Physician Assistant Medical | DX: I51.81 Takotsubo syndrome (principal) | CPT/HCPCS: 93308; 93321; 93325 ==

== ENCOUNTER → 2024-05-02 12:35 | Outpatient (REF) | payer OTHER, SELFPAY | LOC: RAD 12:35 | PROVIDERS: ATTENDING PHYSICIAN Physician Assistant Medical | DX: M54.6 Pain in thoracic spine (principal); J10.1 Influenza due to other identified influenza virus with other respiratory manifestations | CPT/HCPCS: 71046 ==